=== PATIENT | female | born 1945 | race Caucasian/White ===

== ENCOUNTER 2020-12-20 04:36 | Emergency (ER) | payer MEDICARE ==
[2020-12-20 04:46] VITALS: BP 162/65; PULSE 92
[2020-12-20] MEDS ORDERED: Sodium Chloride 0.9% 10 ML Syringe FLUSH PRN (04:56)
[2020-12-20] MEDS ORDERED: Alum Hydrox/Mag Hydrox/Simeth 30 ML, Lidocaine 2% 15 ML PO ONE ×2 (04:57)
[2020-12-20] MEDS ORDERED: Pantoprazole 40 MG Vial IVPUSH ONE (04:57)
--- NOTE | 2020-12-20 05:02 | EDM.PDOC ---
ED HPI GENERAL MEDICAL PROBLEM - General Chief Complaint: Chest Pain Stated Complaint: SIDE AND STOMACH PAIN Time Seen by Provider: 12/20/20 04:50 Source of Information: Reports: Patient History Limitations: Reports: No Limitations - History of Present Illness INITIAL COMMENTS - FREE TEXT/NARRATIVE: The patient presents with chest pain and upper abdominal pain. This started a few days ago. She said every time she eats something solid she feels it. She says it is like a squeezing pain. She has no fever, chills, cough, abdominal pain, nausea or vomiting. She has some shortness of breath with it when it comes on. She has no diarrhea. She says it almost feels like when she had a bad gallbladder. That was removed a few years ago. The patient did also fall a few days ago and hit her face. Onset: Gradual Duration: Day(s): Location: Reports: Chest, Abdomen Quality: Reports: Sharp Severity: Moderate Improves with: Reports: None Worsens with: Reports: None Associated Symptoms: Reports: Chest Pain, Shortness of Breath. Denies: Cough, Fever/Chills, Headaches, Nausea/Vomiting Chest Pain Score (Numeric/FACES): 8 - Related Data Allergies Allergy/AdvReac Type Severity Reaction Status Date / Time No Known Allergies Allergy Verified 12/20/20 04:46 Home Meds: Home Meds Aspirin [Adult Low Dose Aspirin EC] 81 mg PO DAILY 03/21/16 [History] Calcium Citrate/Vitamin D3 [Citracal + D Maximum Caplet] 1 tab PO DAILY 03/21/16 [History] Cyanocobalamin (Vitamin B-12) [Vitamin B-12] 1,000 mcg PO DAILY 03/21/16 [History] Dicyclomine HCl [Bentyl] 10 mg PO DAILY 03/21/16 [History] Meclizine [Antivert] 25 mg PO Q6HR PRN 03/21/16 [History] Plant Stanol Lacy [Cholest Off] 1 tab PO DAILY 03/21/16 [History] Triamterene/Hydrochlorothiazid [Triamterene-HCTZ 37.5-25 MG] 1 each PO DAILY 03/21/16 [History] Vitamin E 400 unit PO DAILY 03/21/16 [History] amLODIPine Besylate/Benazepril [Amlodipine-Benazepril 5-20 MG] 1 tab PO BID 03/21/16 [History] atorvaSTATin [Lipitor] 10 mg PO BEDTIME 03/21/16 [History] Acetaminophen [Tylenol] 650 mg PO Q4H PRN #0 tablet 03/22/16 [Rx] Ibuprofen [Motrin] 400 mg PO Q6H PRN #0 tablet 03/22/16 [Rx] oxyCODONE 5 - 10 mg PO Q4H PRN #50 tablet 03/22/16 [Rx] Past Medical History HEENT History: Reports: Hard of Hearing, Impaired Vision Other HEENT History: wears glasses Cardiovascular History: Reports: High Cholesterol, Hypertension Gastrointestinal History: Reports: Other (See Below) Other Gastrointestinal History: RUQ pain DYE WEIGHER History: Reports: Endocrine/Metabolic History: Reports: Diabetes, Type II - Past Surgical History HEENT Surgical History: Reports: Cataract Surgery GI Surgical History: Reports: Appendectomy, Other (See Below) Other GI Surgeries/Procedures: bowel resection Female Surgical History: Reports: Tubal Ligation Musculoskeletal Surgical History: Reports: Other (See Below) Other Musculoskeletal Surgeries/Procedures:: left wrist fracture with pinning Social & Family History - Tobacco Use Tobacco Use Status *Q: Former Tobacco User Used Tobacco, but Quit: Yes Month/Year Tobacco Last Used: 21 yrs ED ROS GENERAL - Review of Systems Review Of Systems: See Below Constitutional: Reports: No Symptoms HEENT: Reports: No Symptoms Respiratory: Reports: No Symptoms Cardiovascular: Reports: Chest Pain Endocrine: Reports: No Symptoms GI/Abdominal: Reports: Abdominal Pain : Reports: No Symptoms Musculoskeletal: Reports: No Symptoms Skin: Reports: No Symptoms Neurological: Reports: No Symptoms ED EXAM, GENERAL - Physical Exam Exam: See Below Exam Limited By: No Limitations General Appearance: Alert, No Apparent Distress Eye Exam: Bilateral Eye: Other (Ecchymosis and edema of both upper and lower eyelids) Ears: Normal External Exam Nose: Normal Inspection Head: Atraumatic, Normocephalic Neck: Normal Inspection Respiratory/Chest: No Respiratory Distress, Lungs Clear, Normal Breath Sounds Cardiovascular: Regular Rate, Rhythm, No Edema, No Murmur GI/Abdominal: Soft, No Organomegaly, No Mass, Tender (Mild tenderness to the upper abdomen) Back Exam: Normal Inspection Extremities: Normal Inspection Course - Vital Signs Last Recorded V/S: Last Vital Signs Temp 97.8 F 12/20/20 04:43 Pulse 92 12/20/20 04:43 Resp 18 12/20/20 04:43 BP 162/65 H 12/20/20 04:43 Pulse Ox 97 12/20/20 04:43 - Orders/Labs/Meds Orders: Active Orders 24 hr Category Date Time Status Cardiac Monitoring [RC] . DIRECTED Care 12/20/20 04:56 Active EKG Documentation Completion [RC] STAT Care 12/20/20 04:56 Active Peripheral IV Care [RC] . DIRECTED Care 12/20/20 04:57 Active Chest 1V Frontal [CR] Stat Exams 12/20/20 04:57 Taken CBC WITH AUTO DIFF [HEME] Stat Lab 12/20/20 05:08 Results Sodium Chloride 0.9% [Saline Flush] Med 12/20/20 04:56 Active 10 ml FLUSH ASDIRECTED PRN Peripheral IV Insertion Adult [OM.PC] Stat Oth 12/20/20 04:56 Ordered Medication Orders Sodium Chloride (Sodium Chloride 0.9% 10 Ml Syringe) 10 ml FLUSH ASDIRECTED PRN PRN Reason: Keep Vein Open Last Admin: 12/20/20 05:06 Dose: 10 ml Documented by: [id number] Labs: Laboratory Tests 12/20/20 12/20/20 Range/Units 05:08 05:08 WBC 13.60 H (3.98-10.04) K/mm3 RBC 3.79 L (3.98-5.22) M/mm3 Hgb 11.4 (11.2-15.7) gm/dl Hct 33.8 L (34.1-44.9) % MCV 89.2 (79.4-94.8) fl MCH 30.1 (25.6-32.2) pg MCHC 33.7 (32.2-35.5) g/dl RDW Std Deviation 39.4 (36.4-46.3) fL Plt Count 394 H (182-369) K/mm3 MPV 12.1 (9.4-12.3) fl Neut % (Auto) 59.5 (34.0-71.1) % Lymph % (Auto) 24.3 (19.3-51.7) % Bent % (Auto) 12.2 (4.7-12.5) % Eos % (Auto) 3.7 (0.7-5.8) Baso % (Auto) 0.2 (0.1-1.2) % Neut # (Auto) 8.09 H (1.56-6.13) K/mm3 Lymph # (Auto) 3.30 (1.18-3.74) K/mm3 Bent # (Auto) 1.66 H (0.24-0.36) K/mm3 Eos # (Auto) 0.50 H (0.04-0.36) K/mm3 Baso # (Auto) 0.03 (0.01-0.08) K/mm3 Sodium 129 L (136-145) mEq/L Potassium 4.1 (3.5-5.1) mEq/L Chloride 93 L (98-107) mEq/L Carbon Dioxide 27 (21-32) mEq/L Anion Gap 13.1 (5-15) BUN 19 H (7-18) mg/dL Creatinine 1.0 (0.55-1.02) mg/dL Est Cr Clr Drug Dosing TNP Estimated GFR (MDRD) 54 (>60) mL/min BUN/Creatinine Ratio 19.0 H (14-18) Glucose 152 H (70-99) mg/dL Calcium 9.6 (8.5-10.1) mg/dL Total Bilirubin 0.3 (0.2-1.0) mg/dL AST 16 (15-37) U/L ALT 22 (14-59) U/L Alkaline Phosphatase 129 H (46-116) U/L Troponin I < 0.017 (0.00-0.056) ng/mL Total Protein 6.9 (6.4-8.2) g/dl Albumin 3.6 (3.4-5.0) g/dl Globulin 3.3 gm/dL Albumin/Globulin Ratio 1.1 (1-2) Lipase 269 (73-393) U/L Meds: Medications Generic Name Dose Route Start Last Admin Trade Name Freq PRN Reason Stop Dose Admin Sodium Chloride 10 ml 12/20/20 04:56 12/20/20 05:06 Sodium Chloride 0.9% 10 Ml Syringe FLUSH 10 ml ASDIRECTED PRN Administration Keep Vein Open Discontinued Medications Generic Name Dose Route Start Last Admin Trade Name Freq PRN Reason Stop Dose Admin Al Hydroxide/Mg Hydroxide 30 0 ml 12/20/20 04:57 12/20/20 05:06 ml/ Lidocaine HCl 15 ml PO 12/20/20 04:58 45 ml ONETIME ONE Administration Pantoprazole Sodium 40 mg 12/20/20 04:57 12/20/20 05:06 Pantoprazole 40 Mg Vial IVPUSH 12/20/20 04:58 40 mg ONETIME ONE Administration - Re-Assessments/Exams Free Text/Narrative Re-Assessment/Exam: 12/20/20 05:01 I ordered an IV saline lock, protonix 40mg IV, GI cocktail, labs, EKG and CXR. 12/20/20 06:55 Her EKG shows NSR with no acute changes. Her CXR looks good. Her WBC is elevated at 13.6. Her Na is low at 129. Her glucose is elevated at 152. Her troponin is negative. Her lipase is normal. She feels better. I will have her take pepcid for 2 weeks and have her follow up with her doctor in a week. Departure - Departure Time of Disposition: 07:00 Disposition: Home, Self-Care 01 Condition: Good Clinical Impression: Atypical chest pain Gastritis Qualifiers: Gastritis type: unspecified gastritis Chronicity: acute Gastritis bleeding: without bleeding Qualified Code(s): K29.00 - Acute gastritis without bleeding Referrals: Binta Shepard MD [Primary Care Provider] - 1 Week Forms: ED Department Discharge, ED Return to Work/School Form Additional Instructions: Take your medications as prescribed. Take pepcid daily for 2 weeks. You can pick that up at your pharmacy. Watch what you eat such as very heavy foods or spicy foods. Follow up with your doctor within a week. Please return if you are worse. Sepsis Event Note (ED) - Evaluation Sepsis Screening Result: No Definite Risk - Focused Exam Vital Signs: Vital Signs Temp Pulse Resp BP Pulse Ox 12/20/20 04:43 97.8 F 92 18 162/65 H 97 - My Orders Last 24 Hours: My Active Orders 12/20/20 04:56 Cardiac Monitoring [RC] . DIRECTED EKG Documentation Completion [RC] STAT Sodium Chloride 0.9% [Saline Flush] 10 ml FLUSH ASDIRECTED PRN Peripheral IV Insertion Adult [OM.PC] Stat 12/20/20 04:57 Peripheral IV Care [RC] . DIRECTED Chest 1V Frontal [CR] Stat 12/20/20 05:08 CBC WITH AUTO DIFF [HEME] Stat - Assessment/Plan Last 24 Hours: My Active Orders 12/20/20 04:56 Cardiac Monitoring [RC] . DIRECTED EKG Documentation Completion [RC] STAT Sodium Chloride 0.9% [Saline Flush] 10 ml FLUSH ASDIRECTED PRN Peripheral IV Insertion Adult [OM.PC] Stat 12/20/20 04:57 Peripheral IV Care [RC] . DIRECTED Chest 1V Frontal [CR] Stat 12/20/20 05:08 CBC WITH AUTO DIFF [HEME] Stat
--- NOTE | 2020-12-20 08:00 | CR ---
Chest: AP view of the chest was obtained. Comparison: Prior chest x-ray of 09/08/11. Heart size and mediastinum are within normal limits for technique. Old ununited fracture is seen within the right clavicle. Degenerative change is scattered within the spine. Lungs are clear with no acute parenchymal change. Impression: 1. Bone findings as noted above which are chronic. 2. Nothing acute is seen on AP chest x-ray. Diagnostic code #2
== END 2020-12-20 07:20 | disposition home or self-care (01) ==
LOC: JD.ED 04:36
DX: K29.00 Acute gastritis without bleeding (principal); R07.89 Other chest pain; E78.00 Pure hypercholesterolemia, unspecified; I10 Essential (primary) hypertension; E11.9 Type 2 diabetes mellitus without complications; Z79.82 Long term (current) use of aspirin; Z79.899 Other long term (current) drug therapy; Z87.891 Personal history of nicotine dependence
CPT/HCPCS: 36415; 71045; 80053; 83690; 84484; 85025; 93005; 96374; 99285; A9270; C9113; 99284

== ENCOUNTER 2022-05-06 14:24 | Emergency (ER) | payer MEDICARE, MEDICAID ==
[2022-05-06 15:15] VITALS: BP 156/50; PULSE 86
[2022-05-06] MEDS ORDERED: traMADol 50 MG Tab PO ONE (18:24)
== END 2022-05-06 18:31 | disposition home or self-care (01) ==
LOC: JD.ED 14:24
DX: M25.561 Pain in right knee (principal); E78.00 Pure hypercholesterolemia, unspecified; I10 Essential (primary) hypertension; E11.9 Type 2 diabetes mellitus without complications; Z79.899 Other long term (current) drug therapy; Z79.82 Long term (current) use of aspirin; Z90.49 Acquired absence of other specified parts of digestive tract
CPT/HCPCS: 93971; 99283; A9270

== ENCOUNTER 2022-05-25 09:54 | Emergency (ER) | payer MEDICARE, MEDICAID ==
[2022-05-25 10:13] VITALS: BP 138/56; PULSE 80
[2022-05-25] MEDS ORDERED: Sodium Chloride 0.9% 10 ML Syringe FLUSH PRN (11:06)
[2022-05-25] MEDS ORDERED: Sodium Chloride 0.9% 1,000 ML IV SCH (11:15)
[2022-05-25 11:18] LABS: CORONAVIRUS COVID-19 NAA NEGATIVE (NEGATIVE)
== END 2022-05-25 14:15 | disposition home or self-care (01) ==
LOC: JD.ED 09:54
DX: E87.1 Hypo-osmolality and hyponatremia (principal); E78.00 Pure hypercholesterolemia, unspecified; I10 Essential (primary) hypertension; E11.9 Type 2 diabetes mellitus without complications; Z79.82 Long term (current) use of aspirin; Z79.899 Other long term (current) drug therapy; Z20.822 Contact with and (suspected) exposure to COVID-19
CPT/HCPCS: 0241U; 36415; 71045; 80053; 84443; 84484; 85025; 93005; 96360; 96361; 99284; J3490; J7030

== ENCOUNTER 2022-06-01 08:33 | Emergency (ER) | payer MEDICARE, MEDICAID ==
[2022-06-01 10:26] LABS: ESTIMATED GFR 38 mL/min (>60)
[2022-06-01 13:57] VITALS: BP 130/70; PULSE 84
== END 2022-06-01 12:59 | disposition home or self-care (01) ==
LOC: JD.ED 08:33
DX: E87.1 Hypo-osmolality and hyponatremia (principal); E11.9 Type 2 diabetes mellitus without complications; I10 Essential (primary) hypertension; E78.00 Pure hypercholesterolemia, unspecified; Z79.899 Other long term (current) drug therapy
CPT/HCPCS: 36415; 80048; 99282

== ENCOUNTER 2022-08-02 09:49 | Emergency (ER) | payer MEDICARE, MEDICAID ==
[2022-08-02 10:00] VITALS: BP 147/73; PULSE 93
== END 2022-08-02 11:36 | disposition home or self-care (01) ==
LOC: JD.ED 09:49
DX: R07.89 Other chest pain (principal); E78.00 Pure hypercholesterolemia, unspecified; I10 Essential (primary) hypertension; E11.9 Type 2 diabetes mellitus without complications; Z79.82 Long term (current) use of aspirin; Z79.899 Other long term (current) drug therapy; Z87.891 Personal history of nicotine dependence
CPT/HCPCS: 36415; 71046; 71046-26; 80053; 83735; 84484; 85025; 85379; 85610; 85730; 93005; 93010; 99284; 99285

== ENCOUNTER 2024-05-06 13:14 | Day surgery (SDC) | payer MEDICARE, MEDICAID ==
[~2024-05-06 13:14] MED LIST: Sodium Chloride 0.9% 10 ML Syringe FLUSH PRN; Sodium Chloride 0.9% 10 ML Syringe FLUSH SCH
[2024-05-06] MEDS: Lactated Ringers 1,000 ML IV SCH (13:42)
[2024-05-06] MEDS ORDERED: Lidocaine 1% 4 ML ONE (13:54)
[2024-05-06] MEDS ORDERED: Lidocaine 1% PF 2 ML SDV ONE ×2 (13:54)
[2024-05-06] MEDS ORDERED: Propofol 200 MG/20 ML SDV ONE (13:54)
[2024-05-06 15:38] VITALS: BP 144/65; PULSE 62
== END 2024-05-06 15:25 | disposition home or self-care (01) ==
LOC: JD.SDS 13:14
PROVIDERS: ATTEND Surgery
DX: K22.2 Esophageal obstruction (principal); K21.00 Gastro-esophageal reflux disease with esophagitis, without bleeding; K29.50 Unspecified chronic gastritis without bleeding; K31.A0 Gastric intestinal metaplasia, unspecified; K31.89 Other diseases of stomach and duodenum; I10 Essential (primary) hypertension; E11.9 Type 2 diabetes mellitus without complications; E78.00 Pure hypercholesterolemia, unspecified; Z79.82 Long term (current) use of aspirin; Z79.899 Other long term (current) drug therapy
CPT/HCPCS: 43239; 43249; 82947; J2704; J7120; 00731; J3490